=== PATIENT | female | born 1970 | race Hispanic/Latino ===

== ENCOUNTER 2024-07-01 18:38 | Emergency (ER) | payer BC, OTHER ==
[~2024-07-01] VITALS: Ht 160 cm; Wt 68.0 kg
[~2024-07-01 18:38] MED LIST: AMARYL2 MG PO; HUMALOG; LANTUS SQ
[2024-07-01 19:45] VITALS: RESP 18; TEMP 97.9
[2024-07-01] MEDS: ORPHENADRINE CITRATE 30 MG/ML VIAL IM ONE (20:03)
[2024-07-01] MEDS: KETOROLAC TROMETHAMINE 60 MG/2 ML VIAL IM ONE (20:04)
[2024-07-01 20:22] LABS: BILIRUBIN,URINE NEGATIVE (NEGATIVE); CLARITY,URINE SL CLOUDY (CLEAR); COLOR,URINE YELLOW (YELLOW); GLUCOSE, URINE NEGATIVE (NEGATIVE); KETONES,URINE 1+ (NEGATIVE); LEUKOCYTE ESTERASE ,URINE TRACE (NEGATIVE); NITRITE,URINE NEGATIVE (NEGATIVE); PH,URINE 6 (5 - 7); PROTEIN,URINE DIPSTICK NEGATIVE (NEGATIVE); URINE UROBILINOGEN 0.2 mg/dL (0.2 - 1)
[2024-07-01 20:33] LABS: BACTERIA,URINE MODERATE /HPF; EPITHELIAL CELLS,URINE MODERATE /LPF; WBC,URINE (MAN) 0-5 /HPF (0-5)
[2024-07-01 22:15] VITALS: PULSE 83
[2024-07-01] MEDS ORDERED: CYCLOBENZAPRINE5 MG PO (22:15)
[2024-07-01] MEDS ORDERED: NAPROSYN500 MG PO (22:15)
[2024-07-01 22:25] VITALS: BP 122/69; O2SAT 100
== END 2024-07-01 22:28 | disposition home or self-care (01) ==
LOC: ER 19:48
DX: M25.552 Pain in left hip (principal); E11.9 Type 2 diabetes mellitus without complications; K21.9 Gastro-esophageal reflux disease without esophagitis; Z86.0100 Personal history of colon polyps, unspecified
CPT/HCPCS: 73502; 81001; 99283; J1885; J2360